=== PATIENT | female | born 1980 | race Hispanic/Latino ===

== ENCOUNTER → 2017-03-18 | Day surgery (SDC) | payer SELFPAY ==
[~2017-03-18] VITALS: Ht 154.9 cm; Wt 54.4 kg
[2017-03-18 06:28] LABS: ABSOLUTE BASOPHIL COUNT 0 /CUMM (0.0-0.2); ABSOLUTE EOSINOPHIL COUNT 0.2 /CUMM (0.0-0.7); ABSOLUTE GRANULOCYTE CT 6.2 /CUMM (1.4-6.5); ABSOLUTE LYMPH COUNT 3.4 /CUMM (1.2-3.4); ABSOLUTE MONOCYTE COUNT 0.6 /CUMM (0.10-0.60); BASOPHIL % 0.3 % (0.0-2.0); EOSINOPHIL % 1.9 % (0-5); GRANULOCYTE % 59.5 % (42.2-75.2); MEAN CORPUSCULAR HGB 26.1 PG (27.0-31.0); MEAN CORPUSCULAR HGB CONC 32.9 G/DL (33.0-37.0); MEAN CORPUSCULAR VOLUME 79.4 FL (81.0-99.0); MEAN PLATELET VOLUME 8.1 FL (7.4-10.4); PLATELET COUNT 267 /CUMM (130-400); RED BLOOD CELL CT 4.91 /CUMM (4.20-5.40); WHITE BLOOD CELL COUNT 10.5 /CUMM (4.8-10.8)
--- NOTE | 2017-03-21 13:25 | Operative Report ---
Operative/Inv Procedure Report Surgery Date: 03/18/17 Name of Procedure: aplasty and lipo back Pre-Operative Diagnosis: liposytrophy Post-Operative Diagnosis: same Estimated Blood Loss: 50ml to 100ml (250) Surgeon/Professor Of Special Education: NICA CHAPARRO,OTTO Pradhan Anesthesia: general endotracheal tube Operative/Procedure Note Note: She was counseled in regards to proceed the alternatives the risks and expected outcomes as relates to her request surgically intervene for lipodystrophy of the trunk via an abdominoplasty and liposuction of the partial patient was marked in the standing position with a ruler. She was shown the areas that would be treated those that would not. She was taken to the operating room placed supine on the table Venodyne boots were placed general endotracheal anesthesia was established and intravenous antibiotics were given. Put prone and liposuction was carried out of the back via The tumescent technique. Patient was then turned into the supine position where an abdominoplasty was performed with double layer plication from xiphoid to pubis with a 3 layer closure over drains.
== END ==
LOC: STS 01:48
PROVIDERS: Surgery Plastic and Reconstructive Surgery
DX: Z41.1 Encounter for cosmetic surgery (principal); E65 Localized adiposity; Z87.891 Personal history of nicotine dependence
CPT/HCPCS: 36415; 81025; J0171; J0690; J2250